=== PATIENT | female | born 1960 | race African-American/Black ===

== ENCOUNTER 2016-11-20 11:35 | Emergency (ER) | payer OTHER ==
[2016-11-20] MEDS ORDERED: Sodium Chloride 0.9% 10 ML Syringe FLUSH PRN (12:00)
[2016-11-20] MEDS ORDERED: Sodium Chloride 0.9% 1,000 ML IV ONE (12:02)
--- NOTE | 2016-11-20 12:12 | EDM.PDOC ---
ED HPI GENERAL MEDICAL PROBLEM - General Chief Complaint: General Stated Complaint: [facility] Time Seen by Provider: 11/20/16 11:56 Source of Information: Reports: Patient, EMS History Limitations: Reports: No Limitations - History of Present Illness INITIAL COMMENTS - FREE TEXT/NARRATIVE: 56-year-old female arrives via [facility] for symptoms of heat exhaustion. Patient reports she first started becoming symptomatic around 9:30 or 10:30 today. 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 She reports that the air conditioning was not working in the [employer] car. Of note the temperature has been in the 90s today. She reports that she began feeling dizziness, nauseous and vomited on one occasion. She states that she could not get on [employer] car and felt weak. She tried putting ice on her back and sucking on ice cubes. Sounds as if she only had about 26-27 ounces of water and energy drinks today. She is denying any current nausea, headaches, body aches, chest pain, shortness of breath, numbness, tingling. Patient is on metoprolol, 50 daily, losartan 100 mg daily and Lasix 20 mg daily. She is on these medications for her blood pressure. She reports that she has been taking them as prescribed. She states she normally has an elevated blood pressure. She did not take the Lasix days 2 did not feel she could relieve herself while at work. Patient reports that she had pneumonia recently in September. She has been following up with her primary care provider for this. She had an appointment with her primary care per provider yesterday. She is fond of elevated liver enzymes. They have been scheduling an ultrasound of her liver. 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 ED ROS GENERAL - Review of Systems Review Of Systems: See Below Constitutional: Reports: Other (reports bod aches) Respiratory: Denies: Shortness of Breath Cardiovascular: Denies: Chest Pain, Edema, Syncope GI/Abdominal: Reports: Nausea (earlier, now resolved), Vomiting (x1 episode). Denies: Abdominal Pain Neurological: Reports: Difficulty Walking. Denies: Headache, Numbness, Syncope , Tingling ED EXAM, GENERAL - Physical Exam Exam: See Below Exam Limited By: No Limitations General Appearance: Alert, WD/WN, No Apparent Distress, Obese Ears: Normal External Exam Nose: Normal Inspection Throat/Mouth: Other (dry mucus membranes) Neck: Normal Inspection, Supple, Non-Tender Respiratory/Chest: No Respiratory Distress, Lungs Clear, Normal Breath Sounds Cardiovascular: Normal Peripheral Pulses, Regular Rate, Rhythm, No Murmur Peripheral Pulses: 1+: Radial (R), Posterior Tibial (L), Posterior Tibial (R), Dorsalis Pedis (L), Dorsalis Pedis (R) GI/Abdominal: Soft, Non-Tender Neurological: Alert, Oriented, Normal Cognition Psychiatric: Normal Affect, Normal Mood Skin Exam: Warm, Dry, Normal Color EKG INTERPRETATION EKG Date: 11/20/16 Time: 12:25 Rhythm: NSR Rate (Beats/Min): 83 [place]: Normal P-Wave: Present QRS: Normal ST-T: Normal QT: Normal Comparison: NA - No Prior EKG EKG Interpretation Comments: NSR at 83 bpm. Mild RAD. Reviewed by myself and Dr. Champagne. Course - Vital Signs Last Recorded V/S: Last Vital Signs Temp 35.8 C 11/20/16 11:44 Pulse 69 11/20/16 15:15 Resp 20 11/20/16 15:15 BP 120/60 11/20/16 15:15 Pulse Ox 98 11/20/16 15:15 - Orders/Labs/Meds Orders: Active Orders 24 hr Category Date Time Status Cardiac Monitoring [RC] . DIRECTED Care 11/20/16 12:00 Active EKG Documentation Completion [RC] STAT Care 11/20/16 12:00 Active Peripheral IV Care [RC] . DIRECTED Care 11/20/16 12:00 Active Peripheral IV Insertion Adult [OM.PC] Routine Oth 11/20/16 11:59 Ordered Labs: Laboratory Tests 11/20/16 11/20/16 11/20/16 Range/Units 12:15 12:15 12:15 WBC 7.64 (3.98-10.04) K/mm3 RBC 5.29 H (3.98-5.22) M/mm3 Hgb 15.5 (11.2-15.7) gm/L Hct 47.5 H (34.1-44.9) % MCV 89.8 (79.4-94.8) fl MCH 29.3 (25.6-32.2) pg MCHC 32.6 (32.2-35.5) g/dl RDW Std Deviation 48.4 H (36.4-46.3) fL Plt Count 319 (182-369) K/mm3 MPV 9.9 (9.4-12.3) fl Neut % (Auto) 76.1 H (34.0-71.1) % Lymph % (Auto) 17.8 L (19.3-51.7) % [place] % (Auto) 5.2 (4.7-12.5) % Eos % (Auto) 0.4 L (0.7-5.8) Baso % (Auto) 0.4 (0.1-1.2) % Neut # (Auto) 5.81 (1.56-6.13) K/mm3 Lymph # (Auto) 1.36 (1.18-3.74) K/mm3 [place] # (Auto) 0.40 H (0.24-0.36) K/mm3 Eos # (Auto) 0.03 L (0.04-0.36) K/mm3 Baso # (Auto) 0.03 (0.01-0.08) K/mm3 Sodium 140 (136-145) mEq/L Potassium 4.1 (3.5-5.1) mEq/L Chloride 105 (98-107) mEq/L Carbon Dioxide 32 (21-32) mEq/L Anion Gap 7.1 (5-15) BUN 11 (7-18) mg/dL Creatinine 1.5 H (0.55-1.02) mg/dL Est Cr Clr Drug Dosing 43.25 mL/min Estimated GFR (MDRD) 36 (>60) mL/min BUN/Creatinine Ratio 7.3 L (14-18) Glucose 113 H (74-106) mg/dL Calcium 11.0 H (8.5-10.1) mg/dL Total Bilirubin 0.4 (0.2-1.0) mg/dL AST 18 (15-37) U/L ALT 32 (14-59) U/L Alkaline Phosphatase 65 (46-116) U/L Troponin I < 0.017 (0.00-0.056) ng/mL B-Natriuretic Peptide < 15 (0-100) pg/mL Total Protein 8.5 H (6.4-8.2) g/dl Albumin 3.6 (3.4-5.0) g/dl Globulin 4.9 gm/dL Albumin/Globulin Ratio 0.7 L (1-2) Urine Color (Yellow) Urine Appearance (Clear) Urine pH (5.0-8.0) Ur Specific [place] (1.005-1.030) Urine Protein (Negative) Urine Glucose (UA) (Negative) Urine Ketones (Negative) Urine Occult Blood (Negative) Urine Nitrite (Negative) Urine Bilirubin (Negative) Urine Urobilinogen (0.2-1.0) Ur Leukocyte Esterase (Negative) Urine RBC (0-5) /hpf Urine WBC (0-5) /hpf Ur Epithelial Cells (0-5) /hpf Urine Bacteria (FEW) /hpf Hyaline Casts (0-5) /lpf WBC Casts (0-5) /lpf Urine Mucus (FEW) /hpf /11/30 Range/Units 14:30 WBC (3.98-10.04) K/mm3 RBC (3.98-5.22) M/mm3 Hgb (11.2-15.7) gm/L Hct (34.1-44.9) % MCV (79.4-94.8) fl MCH (25.6-32.2) pg MCHC (32.2-35.5) g/dl RDW Std Deviation (36.4-46.3) fL Plt Count (182-369) K/mm3 MPV (9.4-12.3) fl Neut % (Auto) (34.0-71.1) % Lymph % (Auto) (19.3-51.7) % [place] % (Auto) (4.7-12.5) % Eos % (Auto) (0.7-5.8) Baso % (Auto) (0.1-1.2) % Neut # (Auto) (1.56-6.13) K/mm3 Lymph # (Auto) (1.18-3.74) K/mm3 [place] # (Auto) (0.24-0.36) K/mm3 Eos # (Auto) (0.04-0.36) K/mm3 Baso # (Auto) (0.01-0.08) K/mm3 Sodium (136-145) mEq/L Potassium (3.5-5.1) mEq/L Chloride (98-107) mEq/L Carbon Dioxide (21-32) mEq/L Anion Gap (5-15) BUN (7-18) mg/dL Creatinine (0.55-1.02) mg/dL Est Cr Clr Drug Dosing mL/min Estimated GFR (MDRD) (>60) mL/min BUN/Creatinine Ratio (14-18) Glucose (74-106) mg/dL Calcium (8.5-10.1) mg/dL Total Bilirubin (0.2-1.0) mg/dL AST (15-37) U/L ALT (14-59) U/L Alkaline Phosphatase (46-116) U/L Troponin I (0.00-0.056) ng/mL B-Natriuretic Peptide (0-100) pg/mL Total Protein (6.4-8.2) g/dl Albumin (3.4-5.0) g/dl Globulin gm/dL Albumin/Globulin Ratio (1-2) Urine Color Yellow (Yellow) Urine Appearance Slt cloudy H (Clear) Urine pH 6.0 (5.0-8.0) Ur Specific [place] 1.025 (1.005-1.030) Urine Protein Trace H (Negative) Urine Glucose (UA) Negative (Negative) Urine Ketones Negative (Negative) Urine Occult Blood Negative (Negative) Urine Nitrite Negative (Negative) Urine Bilirubin Negative (Negative) Urine Urobilinogen 0.2 (0.2-1.0) Ur Leukocyte Esterase Negative (Negative) Urine RBC 0-5 (0-5) /hpf Urine WBC 0-5 (0-5) /hpf Ur Epithelial Cells 0-5 (0-5) /hpf Urine Bacteria Few (FEW) /hpf Hyaline Casts 0-5 (0-5) /lpf WBC Casts 0-5 (0-5) /lpf Urine Mucus Few (FEW) /hpf Meds: Medications Discontinued Medications Generic Name Dose Route Start Last Admin Trade Name Freq PRN Reason Stop Dose Admin Sodium Chloride 1,000 mls @ 999 mls/hr 11/20/16 12:02 11/20/16 12:21 Normal Saline IV 11/20/16 13:02 999 mls/hr ONETIME ONE Administration Sodium Chloride 10 ml 11/20/16 12:00 11/20/16 12:22 Saline Flush FLUSH 10 ml ASDIRECTED PRN Administration Keep Vein Open - Radiology Interpretation Free Text/Narrative:: chest xray impression per Dr. Vick: 1. Slight atelectasis. Nothing acute is seen on chest xray. - Re-Assessments/Exams Free Text/Narrative Re-Assessment/Exam: 11/20/16 14:54 Labs returned. wbc is 7.64, hgb is 15.5 and plts are 319 Sodium 140, potassium 4.1 and chloride 105. creatinine 1.5. Glucose 113. Total bili 0.4, AST 18, AST 32 and alkaline phosphatase 65. trop Negative at less than 0.07. BNP less than 15. I reviewed the labs, ekg and chest xray with the patient. She is feeling improved. Has tried some cranberry juice. No vomiting since entering the ER. 11/20/16 15:38 Patient is resting peacefully. She has been able to keep cranberry juice down. Her blood pressures have been good with the systolics in the 140s to 120s. This did not require any treatment. We will discharge her home at this time. Discharge instructions as documented. Departure - Departure Time of Disposition: 15:51 Disposition: Home, Self-Care 01 Condition: Good Clinical Impression: Heat exhaustion - Discharge Information Instructions: Heat Exhaustion Information Referrals: Penny Nelson ARNP [Primary Care Provider] - Forms: ED Department Discharge, Return to Work/School Form Additional Instructions: Continue with your current plan of care. Make sure you're drinking plenty of fluids. I recommend drinking water and Gatorade Powerade for the electrolytes. Avoid drinks with caffeine such as energy drinks or pop as these can actually act as a diuretic and make dehydration worse. Follow-up with your primary care provider within the next few weeks. Your liver enzymes were normal today. Discuss with her if you need the liver ultrasound. please return to the ER if your symptoms change or worsen. - My Orders Last 24 Hours: My Active Orders 11/20/16 11:59 Peripheral IV Insertion Adult [OM.PC] Routine 11/20/16 12:00 Cardiac Monitoring [RC] . DIRECTED EKG Documentation Completion [RC] STAT Peripheral IV Care [RC] . DIRECTED - Assessment/Plan Last 24 Hours: My Active Orders 11/20/16 11:59 Peripheral IV Insertion Adult [OM.PC] Routine 11/20/16 12:00 Cardiac Monitoring [RC] . DIRECTED EKG Documentation Completion [RC] STAT Peripheral IV Care [RC] . DIRECTED
--- NOTE | 2016-11-20 12:32 | CR ---
Chest: Portable view of the chest was obtained. Comparison: No previous study. Heart size and mediastinum are within normal limits for portable technique. Minimal atelectasis within the right lung base is seen. Lungs otherwise are clear. Bony structures are grossly intact. Impression: 1. Slight atelectasis. Nothing acute is seen on portable chest x-ray. Diagnostic code #2
[2016-11-20 15:15] VITALS: BP 120/60
== END 2016-11-20 16:01 | disposition home or self-care (01) ==
LOC: JD.ED 11:35 → SUPCPDRO 11:35 → JD.ED 16:01
DX: T67.5XXA Heat exhaustion, unspecified, initial encounter (principal); Z87.01 Personal history of pneumonia (recurrent)
CPT/HCPCS: 36415; 71010; 80053; 81001; 83880; 84484; 85025; 93005; 96360; 99285; J7040; J7050; 99283